=== PATIENT | male | born 1975 | race Caucasian/White ===

== ENCOUNTER 2020-09-17 18:08 | Emergency (ER) | payer OTHER ==
[~2020-09-17] VITALS: Ht 172.7 cm; Wt 74.8 kg
[2020-09-17] MEDS ORDERED: AMOXICILLIN/CLAVULANATE K 875 MG TAB PO STA (18:58)
[2020-09-17] MEDS ORDERED: TETANUS/DIPHTHERIA TOX ADULT 0.5 ML SYR IM ONE (19:00)
[2020-09-17] MEDS ORDERED: FAMOTIDINE 20 MG/2 ML VIAL IV ONE (19:24)
[2020-09-17] MEDS ORDERED: BACITRACIN ZINC 15 GM OINT TOP SCH (20:30)
[2020-09-17] MEDS ORDERED: NAPROSYN500 MG PO (20:40)
[2020-09-17] MEDS ORDERED: AUGMENTIN 875-1 EACH PO (20:40)
== END 2020-09-17 20:55 | disposition home or self-care (01) ==
LOC: FSED 18:25
DX: S61.451A Open bite of right hand, initial encounter (principal); W54.0XXA Bitten by dog, initial encounter; Y92.008 Other place in unspecified non-institutional (private) residence as the place of occurrence of the external cause; I10 Essential (primary) hypertension; Z85.47 Personal history of malignant neoplasm of testis
CPT/HCPCS: 90471; 99283